=== PATIENT | male | born 1975 | race Caucasian/White ===

== ENCOUNTER 2018-06-05 13:36 | Emergency (ER) | payer MEDICARE, MEDICAID, SELFPAY ==
[2018-06-05] VITALS (9 sets, daily range): BP systolic 109–133; BP diastolic 65–91; PULSE 84–98; RESP 13–20; TEMP 36.7–37.1; O2SAT 97–98; BMI 26.2
--- NOTE | 2018-06-05 13:59 | EKG12_ITS ---
Test Reason : MHC Blood Pressure : / mmHG Vent. Rate : 076 BPM Atrial Rate : 076 BPM P-R Int : 126 ms QRS Dur : 098 ms QT Int : 392 ms P-R-T Axes : 035 056 015 degrees QTc Int : 441 ms Normal sinus rhythm Nonspecific T wave abnormality Abnormal ECG Confirmed by MUNIR ROSS, LATASHA ([id number]), multimedia editor ELVIS CAMPBELL ([id number]) on 06/07/2018 1:57:06 PM Referred By: LARISA Confirmed By:LATASHA AMARAL MD
[2018-06-05 14:43] LABS: Absolute Lymphocyte Count 1.94 X10^3/ul (0.83-4.51); Absolute Neutrophil Count 4.6 X10^3/uL (2.0-7.7); Basophil# 0.07 X10^3/uL; Basophil% 0.8 % (0-1); Eosinophil# 1.27 X10^3/uL; Eosinophils% 14.7 % (0-5); Hematocrit 44.4 % (40-54); Hemoglobin 14.8 g/dl (13.0-16.5); Lymphocyte # 1.94 X10^3/ul (4.0); Lymphocyte % 22.4 % (19-41); Mean Corp Hgb Conc 33.3 g/gl (32-36); Mean Corpuscular Hgb 30.7 pg (27.0-32.0); Mean Corpuscular Volume 92.1 fL (80-94); Mean Platelet Vol. 11.1 fl (6.2-12.0); Monocyte% 9.2 % (0-10); Neutrophil # 4.56 X10^3/uL (2.7-7.7); Neutrophil % 52.8 % (47-70); POSITIVE COUNT NO; POSITIVE DIFFERENTIAL NO; POSITIVE MORPHOLOGY NO; Platelet Count 226 K/mm3 (150-450); RBC Distribution Width CV 13.7 % (11.6-14.6); Red Blood Count 4.82 M/mm3 (4.6-6.2); White Blood Count 8.7 K/mm3 (4.4-11.0)
[2018-06-05] MEDS: DiphenhydrAMINE 25 MG Capsule 50 MG PO (14:52)
[2018-06-05] MEDS: Ziprasidone IM 20 MG/ML VIAL IM (14:52)
[2018-06-05 15:14] LABS: Anion Gap 9 (5-15); BUN 16 mg/dL (7-18); Calcium,Total 9.3 mg/dL (8.5-10.1); Chloride 105 mmol/L (98-107); Creatinine, Serum 0.89 mg/dL (0.70-1.30); EST Glomerular Filtration Rate 99 mL/min (>60); Est Glom Filt Rate - Afr Amer 120 mL/min (>60); Estimated Creatinine Clearance 112.81 ml/min; Glucose 81 mg/dL (74-106); Potassium 3.4 mmol/L (3.5-5.1); Sodium Level 140 mmol/L (136-145); Thyroid Stim Hormone (TSH) 1.56 uIU/mL (0.358-3.74)
[2018-06-05 16:16] LABS: Acetaminophen (Tylenol) Level < 2.0 ug/mL (10.0-30.0); Salicylate 2.8 mg/dL (2.8-20.0)
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
[2018-06-05] MEDS: Ibuprofen 600 MG Tablet PO (18:52)
--- NOTE | 2018-06-05 18:59 | ED.RN ---
[facility]. PROP MAKING SUPERVISOR STATED ABDOULAYE WILL BE IN TO SEE PT.
[2018-06-05 19:12] LABS: Amphetamine Urine VISTA POSITIVE (<1000 ng/mL); Barbiturate Urine VISTA NEGATIVE (< 200 ng/mL); Benzodiazepine Urine VISTA NEGATIVE (< 200 ng/mL); Cocaine Urine VISTA POSITIVE (< 300 ng/mL); Ecstacy Urine VISTA NEGATIVE (< 500 ng/mL); Methadone Urine VISTA NEGATIVE (< 300 ng/mL); PCP Urine VISTA NEGATIVE (< 25 ng/mL); THC Urine VISTA POSITIVE (< 50 ng/mL); Vista UDS pH Range 5
[2018-06-05] MEDS: Ipratropium/Albuterol Sulfate 3 ML AMPUL.NEB INHALATION (19:20)
[2018-06-05] MEDS: LORazepam 2 MG/ML Syringe IM (19:25)
--- NOTE | 2018-06-05 23:07 | ED.RN ---
pt sent with clothes, headphone, cellphone and home support worker.
== END 2018-06-05 23:09 ==
PROVIDERS: Emergency Provider Emergency Medicine
DX: F29 Unspecified psychosis not due to a substance or known physiological condition (principal); R45.851 Suicidal ideations; R45.1 Restlessness and agitation; F43.10 Post-traumatic stress disorder, unspecified; X58.XXXA Exposure to other specified factors, initial encounter; Y93.9 Activity, unspecified; Y92.9 Unspecified place or not applicable; Y99.9 Unspecified external cause status; R42 Dizziness and giddiness
CPT/HCPCS: 80048; 80307; 80320; 80329; 84443; 85025; 93005; 94640; 96372; 99285; G0480; J3486

== ENCOUNTER → 2025-05-12 | Outpatient (CLI) | payer MEDICAID, SELFPAY ==
[2025-05-12 16:45] LABS: Hematocrit 43.7 % (40-54); Hemoglobin 14.6 g/dL (13.0-16.5); Immature Granulocytes Count 0.030 X10^3/uL (0.0-0.0); Mean Corp Hgb Conc 33.4 g/dL (32-36); Mean Corpuscular Volume 92.2 fL (80-94); Mean Platelet Vol. 11.3 fl (6.2-12.0); NRBC Flagged by Analyzer 0 % (0-5); Platelet Count 219 K/mm3 (150-450); RBC Distribution Width CV 13.2 % (11.6-14.6); RBC Distribution Width SD 44.9 fl (35.1-43.9); Red Blood Count 4.74 M/mm3 (4.6-6.2); White Blood Count 12.1 K/mm3 (4.4-11.0)
[2025-05-12 17:29] LABS: AST(SGOT) 20 U/L (<=37); Alanine Aminotransfer ALT/SGPT 21 U/L (<=46); Albumin, Serum 4.5 g/dL (3.5-5.0); Alkaline Phosphatase 72 U/L (40-129); Anion Gap 12 (5-15); BUN 15 mg/dL (4-19); BUN/Creat Ratio 15.5 RATIO (10-20); Calcium,Total 9.8 mg/dL (7.6-11.0); Carbon Dioxide 25.5 mmol/L (21.0-32.0); Chloride 101 mmol/L (98-108); Cholesterol 202 mg/dL (<=200); Globulin 2.8 g/dL (2.2-4.2); Glucose 99 mg/dL (70-99); Low Density Lipoprotein Calc. 87 mg/dL; Potassium 4.7 mmol/L (3.3-5.1); Triglycerides 394 mg/dL; Very Low Density Lipoprotein 79 mg/dL (5-40); cholesterol:hdl ratio screen 5.56
== END | disposition home or self-care (01) ==
PROVIDERS: Referring Provider Family Medicine; Visit Provider Family Medicine
DX: R73.01 Impaired fasting glucose (principal); Z13.6 Encounter for screening for cardiovascular disorders; Z13.228 Encounter for screening for other metabolic disorders
CPT/HCPCS: 36415; 80053; 80061; 83036; 84443; 85025